=== PATIENT | female | born 1995 | race Caucasian/White ===

== ENCOUNTER 2022-10-25 07:35 | Emergency (ER) | payer BC ==
[~2022-10-25] VITALS: Ht 162.6 cm; Wt 63.5 kg
[2022-10-25 09:11] VITALS: BP 133/62; TEMP 98.4; O2SAT 100
== END 2022-10-25 09:12 | disposition home or self-care (01) ==
LOC: ER 07:50
DX: M25.512 Pain in left shoulder (principal); Z60.2 Problems related to living alone
CPT/HCPCS: 99283; 73030; A4624